=== PATIENT | female | born 1985 | race Caucasian/White ===

== ENCOUNTER 2024-02-05 09:35 | Outpatient (CLI) | payer MEDICARE, MEDICAID ==
[~2024-02-05 09:35] MED LIST: ALPR-624 PO; CLAR250T43 PO; LORA0.5T PO; METR-159 PO; PROM25SU9 RC; WEL75T PO
== END 2024-02-05 23:59 | disposition home or self-care (01) ==
LOC: RAD 09:35
PROVIDERS: ATTEND Obstetrics & Gynecology
DX: O09.521 Supervision of elderly multigravida, first trimester (principal); Z3A.12 12 weeks gestation of pregnancy
CPT/HCPCS: 76801